=== PATIENT | male | born 1970 | race African-American/Black ===

== ENCOUNTER 2017-09-01 07:53 | Emergency (ER) | payer OTHER ==
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
[2017-09-01 08:12] VITALS: BMI 39.9
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
[2017-09-01] MEDS ORDERED: morphine CARPU-JECT 2 MG/1 ML DISP.SYRIN IVPUSH ONE (08:59)
[2017-09-01] MEDS ORDERED: diazePAM CARPU-JECT 10 MG/2 ML DISP.SYRIN IVPUSH ONE (08:59)
[2017-09-01] MEDS ORDERED: morphine CARPU-JECT 4 MG/1 ML DISP.SYRIN IVPUSH ONE (09:09)
[2017-09-01] MEDS ORDERED: morphine CARPU-JECT 2 MG/1 ML DISP.SYRIN ONE (09:09)
[2017-09-01] MEDS ORDERED: diazePAM 5 MG TABLET ONE (09:10)
[2017-09-01 09:13] LABS: BASOPHIL 0.8 % (0-2.0); EOSINOPHIL 6.4 % (0-4.5); MCHC 32.9 g/dl (32.0-35.9); MEAN CELL VOLUME 81.9 fl (80-96); MEAN PLT VOLUME 7.7 fl (7.5-11.1); NEUTROPHILS 47.6 % (42.8-82.8); PLATELET COUNT 257 K/MM3 (134-434); RDW 13.3 % (11.9-15.9)
[2017-09-01 09:31] LABS: ALBUMIN 3.9 g/dl (3.4-5.0); ANION GAP 5 (8-16); BILIRUBIN,TOTAL 0.4 mg/dL (0.2-1.0); CALCIUM 8.8 mg/dL (8.5-10.1); CO2 28 mmol/L (21-32); CREATININE 0.9 mg/dL (0.7-1.3); GLUCOSE,RANDOM 144 mg/dL (74-106); SGOT/AST 15 U/L (15-37); SGPT/ALT 26 U/L (12-78); TOT PROT 7.8 g/dl (6.4-8.2)
[2017-09-01 09:32] LABS: ALK PHOS 93 U/L (45-117); CPK 105 IU/L (39-308)
[2017-09-01 09:33] LABS: TROPONIN I < 0.02 ng/ml (0.00-0.05)
[2017-09-01 12:40] VITALS: BP 137/82; PULSE 87; TEMP 98.6
--- NOTE | 2017-09-01 14:07 | EKG ---
Test Reason : Blood Pressure : / mmHG Vent. Rate : 079 BPM Atrial Rate : 079 BPM P-R Int : 176 ms QRS Dur : 084 ms QT Int : 350 ms P-R-T Axes : 037 028 030 degrees QTc Int : 401 ms NORMAL SINUS RHYTHM NORMAL ECG NO PREVIOUS ECGS AVAILABLE Confirmed by HOLLY WORKMAN MD ([id number]) on 09/01/2017 2:07:34 PM Referred By: Confirmed By:HOLLY WORKMAN MD
== END 2017-09-01 12:38 | disposition home or self-care (01) ==
LOC: JER 07:53
PROC: 3E033NZ Introduction of Analgesics, Hypnotics, Sedatives into Peripheral Vein, Percutaneous Approach (ICD-10-PCS; principal; 2017-09-01)
PROC: 3E033NZ Introduction of Analgesics, Hypnotics, Sedatives into Peripheral Vein, Percutaneous Approach (ICD-10-PCS; 2017-09-01)
DX: R07.89 Other chest pain (principal); G44.319 Acute post-traumatic headache, not intractable; M54.5 Low back pain; V73.5XXA Driver of bus injured in collision with car, pick-up truck or van in traffic accident, initial encounter; Y92.488 Other paved roadways as the place of occurrence of the external cause; Y93.89 Activity, other specified
CPT/HCPCS: 36415; 71020-TC; 72131-TC; 73502-TC-LT; 73562-TC-RT; 80053; 84484; 85025; 93005; 93010; 99285-25